=== PATIENT | male | born 1965 | race Caucasian/White ===

== ENCOUNTER 2018-04-25 16:55 | Inpatient (IN) | payer SELFPAY ==
[~2018-04-25] VITALS: Ht 177.8 cm; Wt 81.6 kg
[2018-04-25] MEDS ORDERED: ASPirin 81 mg TAB PO ONE (17:30)
[2018-04-25 18:04] LABS: Basophils # (auto) 0.1 uL; Basophils % (auto) 0.8 % (0.0-2.0); Eosinophils # (auto) 0.4 uL; Eosinophils % (auto) 3.7 % (0.0-7.0); Hematocrit 39.9 % (41.0-53.0); Hemoglobin 13.6 g/dL (13.5-17.5); Lymphocytes # (auto) 2.6 uL; Lymphocytes % (auto) 22.8 % (10.0-50.0); Mean Corpuscular Hemoglobin 32.3 pg (28.0-32.0); Mean Corpuscular Volume 94.9 fL (80.0-100.0); Monocytes # (auto) 1.1 uL; Monocytes % (auto) 9.8 % (0.0-12.0); Neutrophils # (auto) 7.3 uL; Neutrophils % (auto) 62.9 % (37.0-80.0); Nucleated Red Blood Cells % 0.1 %; Platelet Count (auto) 371 10^3/uL (140-450); Red Blood Cells 4.21 10^6/uL (4.5-5.90); Red Cell Distribution Width 12.7 % (11.8-14.3); White Blood Cell 11.6 10^3/uL (4.4-10.8)
[2018-04-25 18:19] LABS: Alanine Aminotransferase 28 U/L (16-61); Albumin 3.3 g/dL (3.4-5.0); Alkaline Phosphatase 86 U/L (45-117); Anion Gap 9 (5-15); Aspartate Aminotransferase 23 U/L (15-37); BUN/Creatinine Ratio 17.3; Bilirubin, Total 0.3 mg/dL (0.2-1.0); Blood Urea Nitrogen 13 mg/dL (7-18); Calcium 8.4 mg/dL (8.5-10.1); Carbon Dioxide 24 mmol/L (21-32); Chloride 99 mmol/L (98-107); GFR African American 141 mL/min; GFR Non-African American 116 mL/min; Glucose 100 mg/dL (74-106); Potassium 3.9 mmol/L (3.5-5.1); Sodium 132 mmol/L (136-145); Total Protein 6.9 g/dL (6.4-8.2)
[2018-04-25 18:48] LABS: INR 0.9 (0.9-1.15); Partial Thromboplastin Time 26.6 sec (23.78-33.04); Prothrombin Time 9.7 sec (9.27-12.13)
[2018-04-25] MEDS ORDERED: HYDROcodone-ACET 5/325MG TAB PO PRN (21:00)
[2018-04-25] MEDS ORDERED: ACETAMINOPHEN 325 MG TAB PO PRN (21:00)
[2018-04-25] MEDS ORDERED: ATORVASTATIN 20 MG TAB PO ONE (21:00)
[2018-04-25] MEDS ORDERED: ONDANSETRON HCL 4 MG/2 ML VIAL IV PRN (21:00)
[2018-04-25] MEDS ORDERED: MORPHINE SULF(PF) 0.5MG/ML 10ML VIAL IV PRN (21:00)
[2018-04-25] MEDS ORDERED: NITROGLYCERIN 0.4 MG SL TAB SL PRN (21:00)
[2018-04-25] MEDS ORDERED: TEMAZEPAM 15 MG CAP PO PRN (21:00)
[2018-04-25 21:31] LABS: Cholesterol 209 mg/dL (< 200); HDL Cholesterol 31 mg/dL (40-59); LDL Cholesterol 157 mg/dL (< 100); Triglycerides 240 mg/dL (< 150)
[2018-04-25] MEDS: FAMOTIDINE 20 MG TAB PO SCH (22:33)
[2018-04-25] MEDS: METOPROLOL TARTRATE 25 MG TAB PO SCH (22:33)
[2018-04-25 23:00] VITALS: BP 143/91
[2018-04-25 23:49] VITALS: BP 143/91
[2018-04-26 05:00] VITALS: BP 120/72
[2018-04-26 05:55] LABS: Basophils # (auto) 0.1 uL; Eosinophils # (auto) 0.5 uL; Eosinophils % (auto) 5.7 % (0.0-7.0); Hematocrit 43.5 % (41.0-53.0); Hemoglobin 14.6 g/dL (13.5-17.5); Lymphocytes # (auto) 3.1 uL; Lymphocytes % (auto) 35.3 % (10.0-50.0); Mean Corpuscular Hemoglobin 32.3 pg (28.0-32.0); Mean Corpuscular Hgb Conc. 33.6 g/dL (32.0-36.0); Mean Corpuscular Volume 96.2 fL (80.0-100.0); Monocytes # (auto) 0.9 uL; Monocytes % (auto) 10.8 % (0.0-12.0); Neutrophils # (auto) 4.1 uL; Neutrophils % (auto) 47.2 % (37.0-80.0); Platelet Count (auto) 381 10^3/uL (140-450); Red Blood Cells 4.52 10^6/uL (4.5-5.90); White Blood Cell 8.7 10^3/uL (4.4-10.8)
[2018-04-26 06:11] LABS: Potassium 4.7 mmol/L (3.5-5.1)
[2018-04-26 06:16] LABS: Albumin 3.2 g/dL (3.4-5.0); BUN/Creatinine Ratio 14.8; Calcium 8.9 mg/dL (8.5-10.1)
[2018-04-26 06:18] LABS: Bilirubin, Total 0.3 mg/dL (0.2-1.0); Total Protein 6.9 g/dL (6.4-8.2)
[2018-04-26 09:00] VITALS: BP 112/85
[2018-04-26] MEDS ORDERED: ASPirin 81 mg TAB PO SCH (10:00)
[2018-04-26] MEDS ORDERED: ENOXAPARIN SOD 40 MG/0.4 ML SYRINGE SC SCH (10:00)
[2018-04-26] MEDS: FAMOTIDINE 20 MG TAB PO SCH (10:28)
[2018-04-26] MEDS: METOPROLOL TARTRATE 25 MG TAB PO SCH (10:28)
[2018-04-26 13:00] VITALS: BP 124/91
[2018-04-26] MEDS ORDERED: ATORVASTATIN 20 MG TAB PO SCH ×2 (22:00)
== END 2018-04-26 15:18 | disposition home or self-care (01) | DRG 313 ==
LOC: ER 16:55 → TELE 16:56 → TELE-WESTW 22:50
PROVIDERS: ADMIT Nurse Practitioner; ATTEND Family Medicine
DX: R07.89 Other chest pain (principal); I10 Essential (primary) hypertension; F17.200 Nicotine dependence, unspecified, uncomplicated; E78.00 Pure hypercholesterolemia, unspecified; Z82.49 Family history of ischemic heart disease and other diseases of the circulatory system
CPT/HCPCS: 36415; 71045; 80053; 80061; 83735; 83880; 84443; 84484; 85025; 85379; 85610; 85730; 93005; 93017; 93306; 94761

== ENCOUNTER 2018-12-19 13:01 | Emergency (ER) | payer MEDICAID ==
[~2018-12-19] VITALS: Ht 177.8 cm; Wt 95.3 kg
[2018-12-19 13:10] VITALS: BP 149/85
[2018-12-19 14:04] LABS: Basophils # (auto) 0.1 uL; Basophils % (auto) 0.8 % (0.0-2.0); Eosinophils # (auto) 0.1 uL; Eosinophils % (auto) 0.8 % (0.0-7.0); Hematocrit 40.6 % (41.0-53.0); Hemoglobin 13.9 g/dL (13.5-17.5); Lymphocytes # (auto) 2.7 uL; Lymphocytes % (auto) 35.7 % (10.0-50.0); Mean Corpuscular Hemoglobin 30.6 pg (28.0-32.0); Mean Corpuscular Hgb Conc. 34.2 g/dL (32.0-36.0); Mean Corpuscular Volume 89.4 fL (80.0-100.0); Monocytes # (auto) 0.5 uL; Monocytes % (auto) 6.5 % (0.0-12.0); Neutrophils # (auto) 4.2 uL; Neutrophils % (auto) 56.2 % (37.0-80.0); Nucleated Red Blood Cells % 0.1 %; Platelet Count (auto) 410 10^3/uL (140-450); Red Blood Cells 4.55 10^6/uL (4.5-5.90); White Blood Cell 7.6 10^3/uL (4.4-10.8)
[2018-12-19 14:06] LABS: Urine Bacteria NONE SEEN /hpf (None Seen); Urine Blood Negative /uL (Negative); Urine Specific Gravity 1.007 (1.001-1.035); Urine WBC <1 /hpf (0 - 3)
[2018-12-19 14:17] LABS: Albumin 3.9 g/dL (3.4-5.0); Anion Gap 11 (5-15); Blood Urea Nitrogen 12 mg/dL (7-18); Calcium 8.4 mg/dL (8.5-10.1); Carbon Dioxide 23 mmol/L (21-32); Chloride 101 mmol/L (98-107); Glucose 91 mg/dL (74-106); Potassium 3.7 mmol/L (3.5-5.1); Sodium 135 mmol/L (136-145)
[2018-12-19 14:19] LABS: Alanine Aminotransferase 29 U/L (16-61); Aspartate Aminotransferase 21 U/L (15-37); BUN/Creatinine Ratio 12.8; GFR African American 108 mL/min; GFR Non-African American 89 mL/min
[2018-12-19 14:24] LABS: Alkaline Phosphatase 140 U/L (45-117); Bilirubin, Total 0.4 mg/dL (0.2-1.0); Total Protein 7.7 g/dL (6.4-8.2)
== END 2018-12-19 17:45 | disposition left against medical advice (07) ==
LOC: ER 13:01
DX: R06.02 Shortness of breath (principal); Z53.21 Procedure and treatment not carried out due to patient leaving prior to being seen by health care provider
CPT/HCPCS: 36415; 71046; 80053; 81001; 84484; 85025; 93005

== ENCOUNTER 2025-10-19 22:05 | Emergency (ER) | payer MEDICAID ==
[~2025-10-19] VITALS: Ht 177.8 cm; Wt 90.7 kg
[2025-10-19 22:18] VITALS: BP 117/75; RESP 24; TEMP 97.8; O2SAT 97
[2025-10-19] MEDS ORDERED: KETOROLAC TROMETH 30 MG/ML 1ML VIAL IM ONE (23:00)
[2025-10-19] MEDS: KETOROLAC TROMETH 30 MG/ML 1ML VIAL IV ONE (23:55)
[2025-10-19] MEDS: HYDROcodone-ACET 10/325MG TAB PO ONE (23:55)
[2025-10-19 23:56] VITALS: PULSE 72
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
--- NOTE | 2025-10-20 01:39 | DVH ---
CHEST RADIOGRAPH Indication: cp Technique: Single frontal view of the chest was obtained COMPARISON: None FINDINGS: Lines and Tubes: None Lungs: Clear Pleura: No effusion. No pneumothorax. Cardiomediastinal contours: Unremarkable Bones: Unremarkable IMPRESSION: 1. No acute disease.
[2025-10-20] MEDS ORDERED: HYDR-4902 PO (01:42)
[2025-10-20] MEDS ORDERED: CYCL-837 PO (01:42)
[2025-10-20] MEDS ORDERED: IBU600T PO (01:42)
--- NOTE | 2025-10-22 13:53 | ECG ---
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
--- NOTE | 2025-10-22 13:53 | ECG ---
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
== END 2025-10-20 02:09 | disposition home or self-care (01) ==
LOC: ER 22:05 → EDBD 22:05 → ER 10-20 02:09
DX: R07.89 Other chest pain (principal); F17.210 Nicotine dependence, cigarettes, uncomplicated; I10 Essential (primary) hypertension
CPT/HCPCS: 71045; 93005; 96374; 99283; J1885